=== PATIENT | female | born 1970 | race Caucasian/White ===

== ENCOUNTER 2020-04-08 06:19 | Day surgery (SDC) | payer SELFPAY ==
[2020-03-28 16:22] VITALS: BMI 27.3
[2020-04-08] MEDS ORDERED: EPINEPHrine/PF 1 MG/1 ML (1:1,000) AMPULE ONE (07:37)
[2020-04-08] MEDS ORDERED: LIDOCAINE HCL 1%, 10 MG/ML (20ML VIAL) ONE (07:38)
[2020-04-08] MEDS ORDERED: ROCURONIUM BROMIDE 50 MG/5 ML SYRINGE ONE ×3 (07:49→09:38)
[2020-04-08] MEDS ORDERED: PROPOFOL 20 ML ONE ×2 (07:49→12:30)
[2020-04-08] MEDS ORDERED: SUCCINYLCHOLINE CHLORIDE 200 MG/10 ML SYRINGE ONE (07:49)
[2020-04-08] MEDS ORDERED: MIDAZOLAM HCL 2 MG/2 ML SINGLE DOSE VIAL ONE ×3 (07:56→08:11)
[2020-04-08] MEDS ORDERED: fentaNYL CITRATE 250 MCG/5 ML VIAL ONE (08:10)
[2020-04-08] MEDS ORDERED: HEPARIN NA (PORCINE) 5,000 UNITS/ML 1ML VIAL ONE (08:24)
[2020-04-08] MEDS ORDERED: ceFAZolin SODIUM 1 GM VIAL ONE ×2 (08:25→11:55)
[2020-04-08] MEDS ORDERED: BUPIVACAINE HCL/PF 2.5 MG/ML - 30 ML VIAL IJ ONE (08:32)
[2020-04-08] MEDS ORDERED: BUPIVACAINE HCL/PF 0.25% (2.5MG/ML) 10 ML VIAL ONE (08:32)
[2020-04-08] MEDS ORDERED: BUPIVACAINE LIPOSOME/PF (EXPAREL) 266 MG/20 ML VIAL ONE (08:33)
[2020-04-08] MEDS ORDERED: DEXAMETHASONE SOD PHOSPHATE 4 MG/1 ML VIAL ONE (11:55)
[2020-04-08] MEDS ORDERED: LIDOCAINE HCL/PF 2% SDV 5ML VIAL ONE (11:55)
[2020-04-08] MEDS ORDERED: ONDANSETRON 4 MG/2 ML VIAL ONE (11:55)
[2020-04-08] MEDS ORDERED: LIDOCAINE HCL 2% JELLY (5 ML/TUBE) ONE (11:55)
[2020-04-08] MEDS ORDERED: NITROGLYCERIN 2% OINTMENT - 1GM PACKET TD ONE (12:16)
[2020-04-08] MEDS ORDERED: NEOSTIGMINE METHYLSULFATE 0.5 MG/1 ML - 10 ML MDV ONE (12:21)
[2020-04-08] MEDS ORDERED: BACITRACIN 15 GM TUBE TOPICAL OINTMENT ONE (12:28)
[2020-04-08] MEDS ORDERED: ONDANSETRON 4 MG/2 ML VIAL IVPB PRN (12:56)
[2020-04-08] MEDS ORDERED: morphine SULFATE 4 MG/ML VIAL IVPUSH PRN (12:56)
[2020-04-08] MEDS ORDERED: ONDANSETRON 4 MG/2 ML VIAL IVPUSH PRN (12:57)
[2020-04-08] MEDS ORDERED: LACTATED RINGERS SOLUTION 1,000 ML IV SCH ×2 (13:00)
[2020-04-08] MEDS: ACETAMINOPHEN 1000 MG/100 ML VIAL (NON FORMULARY) IVPB ONE ×2 (13:25→15:15)
[2020-04-08] MEDS: CEFAZOLIN 1 GM/D5W 1 GM/50 ML BAG IVPB SCH ×2 (15:54→21:02)
[2020-04-08] MEDS: oxyCODONE HCL 5 MG TABLET PO PRN (21:01)
[2020-04-08] MEDS: HEPARIN NA (PORCINE) 5,000 UNITS/ML 1ML VIAL SQ SCH (21:14)
[2020-04-08] MEDS ORDERED: ZOLPIDEM TARTRATE 5 MG TABLET PO ONE (22:30)
[2020-04-09 01:19] VITALS: PULSE 89
[2020-04-09] MEDS: CEFAZOLIN 1 GM/D5W 1 GM/50 ML BAG IVPB SCH ×2 (03:01→10:47)
[2020-04-09 06:45] VITALS: BP 121/72; TEMP 97.7
[2020-04-09] MEDS: oxyCODONE HCL 5 MG TABLET PO PRN ×2 (07:21→12:04)
[2020-04-09] MEDS ORDERED: ASCORBIC ACID 500 MG TABLET (FP) PO SCH (10:00)
[2020-04-09] MEDS ORDERED: PATIENT'S OWN MEDICATION (NON-FORMULARY) (L.Acidoph,Paracasei, B.Lactis [Probiotic] 1 EACH PO SCH (10:00)
[2020-04-09] MEDS ORDERED: LACTOBACILLUS ACIDOPHILUS 1 TABLET PO SCH (10:00)
[2020-04-09] MEDS: HEPARIN NA (PORCINE) 5,000 UNITS/ML 1ML VIAL SQ SCH (10:47)
== END 2020-04-09 16:40 | disposition home or self-care (01) ==
LOC: FASUSAT 06:19 → FM/S 14:32 → FASUSAT 04-09 16:40
PROVIDERS: ATTEND Plastic Surgery
PROC: 0J080ZZ Alteration of Abdomen Subcutaneous Tissue and Fascia, Open Approach (ICD-10-PCS; principal; 2020-04-08 08:44)
PROC: 0J083ZZ Alteration of Abdomen Subcutaneous Tissue and Fascia, Percutaneous Approach (ICD-10-PCS; 2020-04-08 08:44)
DX: Z41.1 Encounter for cosmetic surgery (principal)
CPT/HCPCS: 81025; 88300-TC; 94760; J0131; J1644